=== PATIENT | male | born 1960 | race Two or more races ===

== ENCOUNTER 2021-01-24 21:43 | Inpatient (IN) | payer MEDICAID, OTHER ==
[~2021-01-24] VITALS: Ht 160 cm; Wt 75.4 kg
[2021-01-24 22:39] LABS: Red Cell Distribution Width 14.3 % (11.8-14.3)
[2021-01-24 22:41] LABS: Hemoglobin 13.4 g/dL (13.5-17.5); Mean Corpuscular Hemoglobin 32.1 pg (28.0-32.0); Mean Corpuscular Hgb Conc. 34.4 g/dL (32.0-36.0); Mean Corpuscular Volume 93.1 fL (80.0-100.0); Red Blood Cells 4.18 10^6/uL (4.5-5.90)
[2021-01-24 22:50] LABS: White Blood Cell 30.8 10^3/uL (4.4-10.8)
[2021-01-24 22:52] LABS: Basophils % (manual) 0 (0.0-2.0); Blast Cells 0; Eosinophils % (manual) 0 (0-7); Metamyelocytes % 0; Myelocytes % 0; Promyelocytes % 0; Reactive Lymphocytes 0
[2021-01-24 23:05] LABS: Alanine Aminotransferase 37 U/L (16-61); Anion Gap 15 (5-15); Aspartate Aminotransferase 24 U/L (15-37); BUN/Creatinine Ratio 13.3; Blood Urea Nitrogen 32 mg/dL (7-18); Calcium 8.6 mg/dL (8.5-10.1); Carbon Dioxide 18 mmol/L (21-32); Chloride 99 mmol/L (98-107); GFR African American 36 mL/min; GFR Non-African American 29 mL/min; Glucose 139 mg/dL (74-106); Potassium 3.4 mmol/L (3.5-5.1); Sodium 132 mmol/L (136-145)
[2021-01-24 23:07] LABS: Band Neutrophils % (manual) 2; Lymphocytes % (manual) 13 (10.0-50.0); Monocytes % (manual) 5 (0-12)
[2021-01-24 23:10] LABS: Alkaline Phosphatase 70 U/L (45-117); Bilirubin, Total 0.6 mg/dL (0.2-1.0); Total Protein 8.3 g/dL (6.4-8.2)
[2021-01-24 23:38] LABS: Lactic Acid w/Reflex 2.2 mmol/L (0.4-2.0)
[2021-01-25] MEDS ORDERED: fentaNYL CITRATE 100 MCG/2 ML VL IV ONE
[2021-01-25] MEDS ORDERED: PIPERACILLIN-TAZOB 2.25GM 50 ML IV ONE (01:15)
[2021-01-25] MEDS ORDERED: ONDANSETRON HCL 4 MG/2 ML VIAL IV PRN (02:15)
[2021-01-25] MEDS ORDERED: VANCOMYCIN PER PHARMACY 0 MG IV SCH (02:15)
[2021-01-25] MEDS ORDERED: MORPHINE SULF INJ 2 MG/ML SYRINGE 1ML IV PRN (02:15)
[2021-01-25] MEDS ORDERED: NITROGLYCERIN 0.4 MG SL TAB SL PRN (02:15)
[2021-01-25] MEDS ORDERED: MORPHINE SULFATE 4 MG/ML SYR/VIAL IV PRN (02:15)
[2021-01-25] MEDS: SODIUM CHLORIDE 0.9% 1,000 ML IV SCH ×2 (02:21→03:31)
[2021-01-25] MEDS ORDERED: VANCOMYCIN 1GM/250ML 250 ML IV ONE (02:30)
[2021-01-25] MEDS ORDERED: POTASSIUM CHL 20MEQ/100ML 100 ML IV ONE (02:45)
[2021-01-25 03:29] LABS: Urine Bacteria MANY /hpf (None Seen); Urine Blood 2+ /uL (Negative); Urine Hyaline Cast FEW /lpf (0 - 2); Urine Mucus FEW (None Seen); Urine Specific Gravity 1.011 (1.001-1.035); Urine WBC 250 /hpf (0 - 3); Urine WBC Clumps PRESENT /hpf (None Seen)
[2021-01-25] MEDS ORDERED: POTASSIUM CHL 20 Meq TABLET PO ONE (03:30)
[2021-01-25 04:22] LABS: Hematocrit 35.3 % (41.0-53.0); Hemoglobin 12.1 g/dL (13.5-17.5); Mean Corpuscular Hemoglobin 32.1 pg (28.0-32.0); Mean Corpuscular Hgb Conc. 34.2 g/dL (32.0-36.0); Mean Corpuscular Volume 93.8 fL (80.0-100.0); Red Blood Cells 3.76 10^6/uL (4.5-5.90); Red Cell Distribution Width 14.2 % (11.8-14.3); White Blood Cell 26.8 10^3/uL (4.4-10.8)
[2021-01-25 04:23] LABS: Basophils % (manual) 0 (0.0-2.0); Blast Cells 0; Metamyelocytes % 0; Myelocytes % 0; Promyelocytes % 0; Reactive Lymphocytes 0
[2021-01-25 04:39] LABS: Albumin 2.5 g/dL (3.4-5.0); BUN/Creatinine Ratio 18.9; Potassium 3.8 mmol/L (3.5-5.1)
[2021-01-25 04:40] LABS: Band Neutrophils % (manual) 1; Eosinophils % (manual) 2 (0-7); Lymphocytes % (manual) 5 (10.0-50.0); Monocytes % (manual) 8 (0-12)
[2021-01-25 04:42] LABS: Bilirubin, Total 0.6 mg/dL (0.2-1.0); Total Protein 7.2 g/dL (6.4-8.2)
[2021-01-25] MEDS: PIPERACILLIN-TAZOB 2.25GM 50 ML IV SCH ×3 (07:45→18:30)
[2021-01-25] MEDS: FAMOTIDINE (10MG/ML) 2ML VL IV SCH (10:40)
[2021-01-25] MEDS ORDERED: BUDE1AER4 IN (12:39)
[2021-01-25] MEDS ORDERED: PRE1T PO (12:39)
[2021-01-25] MEDS: HEPARIN SODIUM (PORCINE) 5000 UNITS/ML 1ML VIAL SC SCH ×2 (12:40→21:57)
[2021-01-25] MEDS: ACETAMINOPHEN 325 MG TAB PO PRN ×2 (12:45→20:16)
[2021-01-25 12:57] VITALS: BP 116/80
[2021-01-25 17:03] VITALS: BP 93/57
[2021-01-25] MEDS: VANCOMYCIN 1GM/250ML 250 ML IV SCH (21:54)
[2021-01-25 22:00] VITALS: BP 107/167
[2021-01-26] MEDS: SODIUM CHLORIDE 0.9% 1,000 ML IV SCH ×3 (00:45→12:00)
[2021-01-26 03:42] VITALS: BP 97/65
[2021-01-26] MEDS: ACETAMINOPHEN 325 MG TAB PO PRN ×2 (03:53→17:22)
[2021-01-26] MEDS: PIPERACILLIN-TAZOB 2.25GM 50 ML IV SCH ×4 (05:39→17:21)
[2021-01-26 05:56] VITALS: BP 87/58
[2021-01-26 09:00] VITALS: BP 85/55
[2021-01-26] MEDS: FAMOTIDINE (10MG/ML) 2ML VL IV SCH ×2 (09:48→22:12)
[2021-01-26] MEDS: HYDROcodone-ACET 5/325MG TAB PO PRN ×2 (09:48→17:22)
[2021-01-26] MEDS: HEPARIN SODIUM (PORCINE) 5000 UNITS/ML 1ML VIAL SC SCH ×2 (09:49→22:14)
[2021-01-26 10:44] LABS: Basophils # (auto) 0.1 10 ^3/uL (0-0.2); Basophils % (auto) 0.4 % (0.0-2.0); Eosinophils # (auto) 0.2 10 ^3/uL (0-0.8); Eosinophils % (auto) 1.3 % (0.0-7.0); Hematocrit 34.4 % (41.0-53.0); Lymphocytes % (auto) 15.1 % (10.0-50.0); Mean Corpuscular Hemoglobin 32.7 pg (28.0-32.0); Mean Corpuscular Hgb Conc. 34.8 g/dL (32.0-36.0); Mean Corpuscular Volume 93.8 fL (80.0-100.0); Monocytes # (auto) 1.9 10 ^3/uL (0-1.3); Monocytes % (auto) 14.1 % (0.0-12.0); Neutrophils # (auto) 9.2 10 ^3/uL (1.6-8.6); Neutrophils % (auto) 69.1 % (37.0-80.0); Nucleated Red Blood Cells % 0.2 %; Red Blood Cells 3.67 10^6/uL (4.5-5.90); Red Cell Distribution Width 14.2 % (11.8-14.3); White Blood Cell 13.4 10^3/uL (4.4-10.8)
[2021-01-26 11:12] LABS: Albumin 2.4 g/dL (3.4-5.0); Calcium 8.3 mg/dL (8.5-10.1); Potassium 3.6 mmol/L (3.5-5.1)
[2021-01-26 11:18] LABS: BUN/Creatinine Ratio 16.3; Bilirubin, Total 0.9 mg/dL (0.2-1.0); Total Protein 7.5 g/dL (6.4-8.2)
[2021-01-26 12:51] VITALS: BP 96/67
[2021-01-26 17:00] VITALS: BP 104/63
[2021-01-26 22:00] VITALS: BP 93/61
[2021-01-26] MEDS: VANCOMYCIN 1GM/250ML 250 ML IV SCH (22:11)
[2021-01-27] MEDS: PIPERACILLIN-TAZOB 2.25GM 50 ML IV SCH ×5 (00:31→23:55)
[2021-01-27 05:00] VITALS: BP 97/59
[2021-01-27 05:30] LABS: Basophils # (auto) 0 10 ^3/uL (0-0.2); Basophils % (auto) 0.4 % (0.0-2.0); Eosinophils # (auto) 0.3 10 ^3/uL (0-0.8); Eosinophils % (auto) 2.6 % (0.0-7.0); Hematocrit 34.7 % (41.0-53.0); Hemoglobin 12.1 g/dL (13.5-17.5); Lymphocytes # (auto) 1.9 10 ^3/uL (0.4-5.4); Lymphocytes % (auto) 18.9 % (10.0-50.0); Mean Corpuscular Hemoglobin 32.3 pg (28.0-32.0); Mean Corpuscular Hgb Conc. 34.7 g/dL (32.0-36.0); Mean Corpuscular Volume 93.1 fL (80.0-100.0); Monocytes # (auto) 1.3 10 ^3/uL (0-1.3); Monocytes % (auto) 13.5 % (0.0-12.0); Neutrophils # (auto) 6.4 10 ^3/uL (1.6-8.6); Neutrophils % (auto) 64.6 % (37.0-80.0); Red Blood Cells 3.73 10^6/uL (4.5-5.90); Red Cell Distribution Width 13.9 % (11.8-14.3); White Blood Cell 9.9 10^3/uL (4.4-10.8)
[2021-01-27 05:40] LABS: Potassium 3.6 mmol/L (3.5-5.1)
[2021-01-27 05:44] LABS: BUN/Creatinine Ratio 18.8; Calcium 8.2 mg/dL (8.5-10.1); Magnesium 1.9 mg/dL (1.6-2.6)
[2021-01-27] MEDS: SODIUM CHLORIDE 0.9% 1,000 ML IV SCH ×3 (06:45→20:43)
[2021-01-27] MEDS: HYDROcodone-ACET 5/325MG TAB PO PRN ×2 (08:30→21:12)
[2021-01-27 09:00] VITALS: BP 106/69
[2021-01-27] MEDS: FAMOTIDINE (10MG/ML) 2ML VL IV SCH ×2 (10:25→21:11)
[2021-01-27] MEDS: HEPARIN SODIUM (PORCINE) 5000 UNITS/ML 1ML VIAL SC SCH ×2 (10:32→21:14)
[2021-01-27 12:46] VITALS: BP 102/64
[2021-01-27] MEDS ORDERED: MAGNESIUM SULFATE 1GM/100ML 100 ML IV ONE (15:15)
[2021-01-27 17:00] VITALS: BP 111/70
[2021-01-27] MEDS: ACETAMINOPHEN 325 MG TAB PO PRN (21:12)
[2021-01-27 22:00] VITALS: BP 104/57
[2021-01-27] MEDS ORDERED: VANCOMYCIN 1GM/250ML 250 ML IV SCH (23:45)
[2021-01-28 05:00] VITALS: BP 90/50
[2021-01-28 05:24] LABS: Basophils # (auto) 0 10 ^3/uL (0-0.2); Basophils % (auto) 0.6 % (0.0-2.0); Eosinophils # (auto) 0.3 10 ^3/uL (0-0.8); Eosinophils % (auto) 4.3 % (0.0-7.0); Hematocrit 35.9 % (41.0-53.0); Hemoglobin 12.6 g/dL (13.5-17.5); Lymphocytes # (auto) 2.4 10 ^3/uL (0.4-5.4); Lymphocytes % (auto) 32.2 % (10.0-50.0); Mean Corpuscular Hemoglobin 32.9 pg (28.0-32.0); Mean Corpuscular Volume 93.9 fL (80.0-100.0); Monocytes % (auto) 13.8 % (0.0-12.0); Neutrophils # (auto) 3.6 10 ^3/uL (1.6-8.6); Neutrophils % (auto) 49.1 % (37.0-80.0); Red Blood Cells 3.83 10^6/uL (4.5-5.90); Red Cell Distribution Width 13.9 % (11.8-14.3); White Blood Cell 7.4 10^3/uL (4.4-10.8)
[2021-01-28 05:44] LABS: BUN/Creatinine Ratio 13.6; Calcium 8.8 mg/dL (8.5-10.1); Magnesium 2.2 mg/dL (1.6-2.6); Potassium 3.8 mmol/L (3.5-5.1)
[2021-01-28] MEDS: PIPERACILLIN-TAZOB 2.25GM 50 ML IV SCH (06:00)
[2021-01-28 09:00] VITALS: BP 113/57
[2021-01-28] MEDS: SODIUM CHLORIDE 0.9% 1,000 ML IV SCH ×2 (09:15→22:01)
[2021-01-28] MEDS ORDERED: VANCOMYCIN 1GM/250ML 250 ML IV SCH (10:00)
[2021-01-28] MEDS: FAMOTIDINE (10MG/ML) 2ML VL IV SCH ×2 (10:22→21:59)
[2021-01-28] MEDS: HEPARIN SODIUM (PORCINE) 5000 UNITS/ML 1ML VIAL SC SCH ×2 (10:27→22:00)
[2021-01-28] MEDS: ERTAPENEM SOD INJ 1 GM in SODIUM CHL 0.9% 50 ML IV SCH (11:04)
[2021-01-28] MEDS: HYDROcodone-ACET 5/325MG TAB PO PRN ×2 (11:05→21:01)
[2021-01-28 13:00] VITALS: BP 111/73
[2021-01-28 17:00] VITALS: BP 100/70
[2021-01-28 22:00] VITALS: BP 106/77
[2021-01-29 05:00] VITALS: BP 103/58
[2021-01-29 05:58] LABS: Basophils # (auto) 0.1 10 ^3/uL (0-0.2); Basophils % (auto) 0.7 % (0.0-2.0); Eosinophils # (auto) 0.4 10 ^3/uL (0-0.8); Eosinophils % (auto) 5.8 % (0.0-7.0); Hematocrit 34.8 % (41.0-53.0); Hemoglobin 12.4 g/dL (13.5-17.5); Lymphocytes # (auto) 1.9 10 ^3/uL (0.4-5.4); Mean Corpuscular Hemoglobin 33.4 pg (28.0-32.0); Mean Corpuscular Hgb Conc. 35.5 g/dL (32.0-36.0); Mean Corpuscular Volume 94.1 fL (80.0-100.0); Monocytes % (auto) 14.4 % (0.0-12.0); Neutrophils # (auto) 3.8 10 ^3/uL (1.6-8.6); Neutrophils % (auto) 52.1 % (37.0-80.0); Nucleated Red Blood Cells % 0.1 %; Red Cell Distribution Width 14.2 % (11.8-14.3); White Blood Cell 7.2 10^3/uL (4.4-10.8)
[2021-01-29 06:14] LABS: BUN/Creatinine Ratio 14.6; Calcium 9.2 mg/dL (8.5-10.1); Potassium 4.3 mmol/L (3.5-5.1)
[2021-01-29 08:41] VITALS: BP 131/69
[2021-01-29] MEDS: ERTAPENEM SOD INJ 1 GM in SODIUM CHL 0.9% 50 ML IV SCH (09:23)
[2021-01-29] MEDS: FAMOTIDINE (10MG/ML) 2ML VL IV SCH ×2 (09:24→21:54)
[2021-01-29] MEDS: HEPARIN SODIUM (PORCINE) 5000 UNITS/ML 1ML VIAL SC SCH ×2 (09:25→21:54)
[2021-01-29 13:15] VITALS: BP 109/74
[2021-01-29] MEDS: SODIUM CHLORIDE 0.9% 1,000 ML IV SCH (14:01)
[2021-01-29 16:45] VITALS: BP 109/71
[2021-01-29 22:00] VITALS: BP 108/72
[2021-01-29] MEDS: HYDROcodone-ACET 5/325MG TAB PO PRN (22:04)
[2021-01-30 05:00] VITALS: BP 104/65
[2021-01-30] MEDS: SODIUM CHLORIDE 0.9% 1,000 ML IV SCH (06:21)
[2021-01-30 09:00] VITALS: BP 112/76
[2021-01-30] MEDS: ERTAPENEM SOD INJ 1 GM in SODIUM CHL 0.9% 50 ML IV SCH (10:03)
[2021-01-30] MEDS: FAMOTIDINE (10MG/ML) 2ML VL IV SCH ×2 (10:03→21:40)
[2021-01-30] MEDS: HEPARIN SODIUM (PORCINE) 5000 UNITS/ML 1ML VIAL SC SCH ×2 (10:04→21:40)
[2021-01-30] MEDS ORDERED: GENTAMICIN SULF 0.3% OPTH(EYE) OINT 3.5GM RIGHTEYE SCH (12:00)
[2021-01-30 13:00] VITALS: BP 100/72
[2021-01-30 17:00] VITALS: BP 98/69
[2021-01-30] MEDS: GENTAMICIN SULF 0.3% OPTH(EYE) OINT 3.5GM RIGHTEYE SCH (21:40)
[2021-01-30 22:00] VITALS: BP 102/71
[2021-01-31] MEDS: SODIUM CHLORIDE 0.9% 1,000 ML IV SCH ×2 (00:25→16:00)
[2021-01-31 05:00] VITALS: BP 104/71
[2021-01-31 08:00] VITALS: BP 99/73
[2021-01-31 08:59] VITALS: BP 99/73
[2021-01-31] MEDS: GENTAMICIN SULF 0.3% OPTH(EYE) OINT 3.5GM RIGHTEYE SCH ×2 (10:02→22:02)
[2021-01-31] MEDS: ERTAPENEM SOD INJ 1 GM in SODIUM CHL 0.9% 50 ML IV SCH (10:02)
[2021-01-31] MEDS: FAMOTIDINE (10MG/ML) 2ML VL IV SCH ×2 (10:02→22:02)
[2021-01-31] MEDS: HEPARIN SODIUM (PORCINE) 5000 UNITS/ML 1ML VIAL SC SCH ×2 (10:03→22:04)
[2021-01-31 12:23] VITALS: BP 97/64
[2021-01-31 17:00] VITALS: BP 104/71
[2021-01-31] MEDS: HYDROcodone-ACET 5/325MG TAB PO PRN (18:47)
[2021-01-31 21:36] VITALS: BP 97/72
[2021-02-01 05:15] VITALS: BP 110/61
[2021-02-01] MEDS: SODIUM CHLORIDE 0.9% 1,000 ML IV SCH (08:40)
[2021-02-01] MEDS: HEPARIN SODIUM (PORCINE) 5000 UNITS/ML 1ML VIAL SC SCH ×2 (08:49→21:10)
[2021-02-01] MEDS: FAMOTIDINE (10MG/ML) 2ML VL IV SCH ×2 (08:49→21:03)
[2021-02-01] MEDS: GENTAMICIN SULF 0.3% OPTH(EYE) OINT 3.5GM RIGHTEYE SCH ×2 (08:50→21:03)
[2021-02-01] MEDS: ERTAPENEM SOD INJ 1 GM in SODIUM CHL 0.9% 50 ML IV SCH ×2 (09:01→09:02)
[2021-02-01 21:54] VITALS: BP 105/71
[2021-02-02] MEDS: SODIUM CHLORIDE 0.9% 1,000 ML IV SCH ×2 (02:40→16:37)
[2021-02-02 05:00] VITALS: BP 106/78
[2021-02-02 09:01] VITALS: BP 101/73
[2021-02-02] MEDS: ERTAPENEM SOD INJ 1 GM in SODIUM CHL 0.9% 50 ML IV SCH (09:51)
[2021-02-02] MEDS: FAMOTIDINE (10MG/ML) 2ML VL IV SCH ×2 (09:51→23:17)
[2021-02-02] MEDS: HEPARIN SODIUM (PORCINE) 5000 UNITS/ML 1ML VIAL SC SCH ×2 (09:51→23:18)
[2021-02-02] MEDS: GENTAMICIN SULF 0.3% OPTH(EYE) OINT 3.5GM RIGHTEYE SCH ×2 (09:51→22:00)
[2021-02-02 13:00] VITALS: BP 114/77
[2021-02-02 17:08] VITALS: BP 101/74
[2021-02-03 08:59] VITALS: BP 107/73
[2021-02-03] MEDS: ERTAPENEM SOD INJ 1 GM in SODIUM CHL 0.9% 50 ML IV SCH (10:00)
[2021-02-03] MEDS: SODIUM CHLORIDE 0.9% 1,000 ML IV SCH ×2 (10:40→11:30)
[2021-02-03] MEDS: GENTAMICIN SULF 0.3% OPTH(EYE) OINT 3.5GM RIGHTEYE SCH ×2 (11:13→21:07)
[2021-02-03] MEDS: HEPARIN SODIUM (PORCINE) 5000 UNITS/ML 1ML VIAL SC SCH ×2 (11:14→21:02)
[2021-02-03] MEDS: FAMOTIDINE (10MG/ML) 2ML VL IV SCH ×2 (11:23→21:01)
[2021-02-03 12:59] VITALS: BP 109/75
[2021-02-03 16:59] VITALS: BP 111/61
[2021-02-03 22:00] VITALS: BP 114/64
[2021-02-04 05:00] VITALS: BP 108/70
[2021-02-04] MEDS: SODIUM CHLORIDE 0.9% 1,000 ML IV SCH (07:30)
[2021-02-04 09:00] VITALS: BP 100/74
[2021-02-04] MEDS: ERTAPENEM SOD INJ 1 GM in SODIUM CHL 0.9% 50 ML IV SCH (09:38)
[2021-02-04] MEDS: GENTAMICIN SULF 0.3% OPTH(EYE) OINT 3.5GM RIGHTEYE SCH ×2 (09:38→21:07)
[2021-02-04] MEDS: FAMOTIDINE (10MG/ML) 2ML VL IV SCH ×2 (09:38→21:07)
[2021-02-04] MEDS: HEPARIN SODIUM (PORCINE) 5000 UNITS/ML 1ML VIAL SC SCH ×2 (09:43→21:08)
[2021-02-04 13:00] VITALS: BP 111/81
[2021-02-04 17:00] VITALS: BP 102/71
[2021-02-04 22:00] VITALS: BP 109/76
[2021-02-05] MEDS: SODIUM CHLORIDE 0.9% 1,000 ML IV SCH (03:30)
[2021-02-05 05:19] VITALS: BP 112/73
[2021-02-05 09:00] VITALS: BP 117/81
[2021-02-05] MEDS: ERTAPENEM SOD INJ 1 GM in SODIUM CHL 0.9% 50 ML IV SCH (09:36)
[2021-02-05] MEDS: FAMOTIDINE (10MG/ML) 2ML VL IV SCH (09:36)
[2021-02-05] MEDS: GENTAMICIN SULF 0.3% OPTH(EYE) OINT 3.5GM RIGHTEYE SCH (09:37)
[2021-02-05] MEDS: HEPARIN SODIUM (PORCINE) 5000 UNITS/ML 1ML VIAL SC SCH (09:40)
[2021-02-05 12:42] VITALS: BP 118/77
[2021-02-05 17:00] VITALS: BP 114/80
[2021-02-05] MEDS: HYDROcodone-ACET 5/325MG TAB PO PRN (17:40)
== END 2021-02-05 18:30 | disposition home or self-care (01) | DRG 720 ==
LOC: ER 21:45 → TELE 01-25 02:01 → TELE-EAST 01-25 11:24 → TELE-WESTW 01-26 02:20 → WEST WING 01-28 12:59
PROVIDERS: ADMIT Nurse Practitioner Family; ATTEND Internal Medicine
PROC: 05HB33Z Insertion of Infusion Device into Right Basilic Vein, Percutaneous Approach (ICD-10-PCS; principal; 2021-01-28)
PROC: B54MZZA Ultrasonography of Right Upper Extremity Veins, Guidance (ICD-10-PCS; 2021-01-28)
DX: A41.9 Sepsis, unspecified organism (principal); N17.0 Acute kidney failure with tubular necrosis; N10 Acute pyelonephritis; Z16.12 Extended spectrum beta lactamase (ESBL) resistance; E88.09 Other disorders of plasma-protein metabolism, not elsewhere classified; N20.0 Calculus of kidney; K59.00 Constipation, unspecified; D47.3 Essential (hemorrhagic) thrombocythemia; R73.9 Hyperglycemia, unspecified; E87.6 Hypokalemia; E66.9 Obesity, unspecified; J45.909 Unspecified asthma, uncomplicated; B96.20 Unspecified Escherichia coli [E. coli] as the cause of diseases classified elsewhere; Z82.49 Family history of ischemic heart disease and other diseases of the circulatory system; Z86.16 Personal history of COVID-19; Z87.01 Personal history of pneumonia (recurrent); Z68.30 Body mass index [BMI] 30.0-30.9, adult; Z20.822 Contact with and (suspected) exposure to COVID-19; E87.8 Other disorders of electrolyte and fluid balance, not elsewhere classified
CPT/HCPCS: 36415; 71045; 74176; 76775; 80048; 80053; 80202; 81001; 83036; 83605; 83735; 84484; 85007; 85025; 85027; 87040; 87086; 87088; 87186; 87426; 93005; 96365; 96367; 96375; 99291; G0378; J1335; J2543; J3490